=== PATIENT | male | born 1990 | race American Indian/Alaskan Native ===

== ENCOUNTER 2016-05-16 23:47 | Emergency (ER) | payer SELFPAY ==
[2016-05-17 01:10] LABS: Basophils % (Auto) 0.4 % (0.0-1.8); Eosinophils % (Auto) 0.3 % (0.0-4.3); Hematocrit 26.8 % (35.5-45.6); Hemoglobin 8.7 gm/dl (11.8-15.2); Mean Corpuscular HGB Conc 33 % (32-34); Mean Corpuscular Hemoglobin 28 pg (28-32); Mean Corpuscular Volume 85 fl (84-94); Platelet Count 267 K/mm3 (140-440); Red Blood Count 3.14 M/mm3 (3.65-5.03); Red Cell Distribution Width 14.9 % (13.2-15.2); White Blood Count 3.7 K/mm3 (4.5-11.0)
[2016-05-17 01:25] LABS: INR 1.18 (0.87-1.13)
[2016-05-17 01:26] LABS: Partial Thromboplastin Time 35.3 Sec. (24.2-36.6)
[2016-05-17 01:40] LABS: BUN/Creatinine Ratio 16.25; Blood Urea Nitrogen 13 mg/dL (9-20); Calcium 8.5 mg/dL (8.4-10.2); Carbon Dioxide 25 mmol/L (22-30); Chloride 95.1 mmol/L (98-107); Glucose 109 mg/dL (75-100); Potassium 4.1 mmol/L (3.6-5.0); Sodium 131 mmol/L (137-145)
[2016-05-17 01:41] LABS: Anion Gap 15 mmol/L
[2016-05-17 02:09] LABS: Bilirubin,Urine NEG (Negative); Blood,Urine SM (Negative); Ketones,Urine TR mg/dL (Negative); Leukocyte Esterase,Urine NEG (Negative); Mucus,Urine 3+ /HPF; Nitrite,Urine NEG (Negative)
--- NOTE | 2016-05-17 20:45 | Emergency Department Report ---
HPI - General Chief Complaint: Skin Rash Time Seen by Provider: 05/17/16 20:15 - HPI HPI: This is a 25-year-old Afro[place] male who presents to the emergency department with complaint of a rash to his entire body including portions of the palms and soles that been going on for the past week. They're occasionally itchy. When he does scratch and sometimes it'll bleed. He also complains of some of these lesions to the penis and portions where the skin has started to come off and he has begun to bleed. He has no trouble with urination however. Patient has a history of HIV and has not been on any antivirals since January 2015 which is also the last time he had a viral load or CD4 count. He does not have a primary care doctor. No recent travel or sick contacts at home. He has not taken anything for symptoms prior to presentation. ED Past Medical Hx - Past Medical History Previous Medical History?: Yes Hx HIV: Yes - Surgical History Past Surgical History?: No - Social History Smoking Status: Never Smoker Substance Use Type: None - Medications Home Medications: Home Medications Medication Instructions Recorded Confirmed Last Taken Type No Known Home Medications [No 05/17/16 05/17/16 Unknown History Reported Home Medications] ED Review of Systems ROS: Stated complaint: RASH/PENILE BLEEDING Other details as noted in HPI Comment: All other systems reviewed and negative Constitutional: denies: chills, fever Eyes: denies: eye pain, eye discharge, vision change ENT: denies: ear pain, throat pain Respiratory: denies: cough, shortness of breath, wheezing Cardiovascular: denies: chest pain, palpitations Gastrointestinal: denies: abdominal pain, nausea, diarrhea Genitourinary: denies: urgency, dysuria Musculoskeletal: denies: back pain, joint swelling, arthralgia Skin: rash, lesions Neurological: denies: headache, weakness, paresthesias Physical Exam - Physical Exam Vital Signs: Vital Signs 05/17/16 05/17/16 00:40 18:47 Temperature 99.6 F Pulse Rate 115 H 96 H Respiratory 20 16 Rate Blood Pressure 131/73 Blood Pressure 113/69 [Left] O2 Sat by Pulse 100 100 Oximetry Physical Exam: GENERAL: The patient is well-developed well-nourished. Patient does not appear in any acute distress. HEENT: Normocephalic. Atraumatic. Extraocular motions are intact. Patient has moist mucous membranes. Pupils equal reactive to light bilaterally. NECK: Supple. Trachea is midline. CHEST/LUNGS: Clear to auscultation. There is no respiratory distress noted. HEART/CARDIOVASCULAR: Regular. There is no tachycardia. There is no gallop rub or murmur. ABDOMEN: Abdomen is soft, nontender. Patient has normal bowel sounds. There is no abdominal distention. SKIN: Patient has diffuse inseminated papular lesions to his entire body including the right palm. Most of the papules are intact. There are some that have been excoriated down. No current bleeding, weeping or drainage. NEURO: The patient is awake, alert, and oriented. The patient is cooperative. The patient has no focal neurologic deficits. The patient has normal speech. MUSCULOSKELETAL: There is no tenderness or deformity. There is no limitation range of motion. There is no evidence of acute injury. ED Course Vital Signs 05/17/16 05/17/16 00:40 18:47 Temperature 99.6 F Pulse Rate 115 H 96 H Respiratory 20 16 Rate Blood Pressure 131/73 Blood Pressure 113/69 [Left] O2 Sat by Pulse 100 100 Oximetry - Consultations Consultation #1: Spoke with the infectious disease physician, Dr. richardson, who agrees with the plan for giving penicillin G 2.4 million units and the patient appears safe for discharge to follow-up with the health department. 05/17/16 21:52 ED Medical Decision Making - Lab Data Result diagrams: 05/17/16 00:53 05/17/16 00:53 - Medical Decision Making 25-year-old male with history of recently untreated HIV presents with a one- week history of a diffuse rash. Appears consistent with disseminated secondary syphilis. Patient's vitals up in stable. He had some mild tachycardia upon presentation but that has since resolved without any treatment. Patient has no current fever. Spoke with infectious disease who did not feel the patient requires admission at this time but does agree with giving the penicillin G and suggests follow-up with the health department. Patient was given the antibiotics and discussed his diagnosis, treatment, and plan for outpatient. He understands and agrees the plan. - Differential Diagnosis HIV/AIDS, syphilis, dermatitis, herpes zoster Critical Care Time: No Critical care attestation.: If time is entered above; I have spent that time in minutes in the direct care of this critically ill patient, excluding procedure time. ED Disposition Clinical Impression: HIV (human immunodeficiency virus infection), Syphilis, secondary Disposition: DISCHARGED TO HOME OR SELFCARE Is pt being admited?: No Does the pt Need Aspirin: No Condition: Stable Instructions: Syphilis (ED) Additional Instructions: Please follow-up with the health department in the next few days without fail. Please avoid any sexual contact until follow-up with the health department. Return to the emergency department with any worsening of your symptoms or any acute distress. Referrals: PRIMARY CARE, [Primary Care Provider] - 3-5 Days [facility] [Outside] - [facility] Time of Disposition: 22:14
[2016-05-17] MEDS ORDERED: BICILLIN L-A IM ONE (21:38)
[2016-05-17 23:02] VITALS: BP 109/66
== END 2016-05-17 22:28 | disposition home or self-care (01) ==
LOC: ED 23:47
DX: A51.49 Other secondary syphilitic conditions (principal); Z21 Asymptomatic human immunodeficiency virus [HIV] infection status
CPT/HCPCS: 36415; 80048; 81001; 85025; 85610; 85730; 87040; 96372; 99283; J0561

== ENCOUNTER 2016-08-26 16:47 | Emergency (ER) | payer OTHER ==
[2016-08-26 16:57] VITALS: BP 121/77
--- NOTE | 2016-08-26 18:22 | Emergency Department Report ---
Entered by NAVI MORENO, acting as scribe for LALITHA OREILLY PA. - General Chief complaint: Skin Rash Stated complaint: POSS STD/RED PATCHES Source: patient Mode of arrival: Ambulatory Limitations: No Limitations - History of Present Illness Initial comments: 25 year old male with a PMHx of syphilis and HIV presents to the ED c/o syphilitic rashes on upper back and bilateral shoulders that began 3 days ago. Associated symptoms include pain and erythema to affected areas, but he denies itching, cough, nausea, vomiting, fever, chills, numbness and tingling. Rates pain an 8/10 in severity. Notes that he no longer has an infectious disease doctor and is currently not compliant with HIV antivirals, because he was dropped from his insurance in 2013. NKDA. MADDEN complaint: rash Onset/Timin -: days(s) Tetanus Up to Date: unsure Location: back (upper), LUE (left shoulder), RUE (right shoulder) Severity: moderate Severity scale (0 -10): 8 Quality: burning, aching Consistency: constant Improves with: none Worsens with: palpation, movement Associated symptoms: denies other symptoms, other (pain to affected areas) Treatments Prior to Arrival: none - Related Data Previous Rx's Medication Instructions Recorded Last Taken Type Cephalexin [Keflex] 500 mg PO QID #28 capsule 08/26/16 Unknown Rx Triamcinolone 0.1% [Kenalog 0.1% 1 applic TP TID #15 tube 08/26/16 Unknown Rx CREAM] Allergies Allergy/AdvReac Type Severity Reaction Status Date / Time No Known Allergies Allergy Unverified 05/17/16 00:40 Abscess Boil HPI - HPI Chief Complaint: Skin Rash Stated Complaint: POSS STD/RED PATCHES Duration: 3 Days Location: Upper Extremity (bilateral shoulders) Severity: Moderate History: Yes Pain, No Fever, No Purulent Drainage, No Numbness, No Foreign Body , No Previous History, No Insect Bite Home Medications: Previous Rx's Medication Instructions Recorded Last Taken Type Cephalexin [Keflex] 500 mg PO QID #28 capsule 08/26/16 Unknown Rx Triamcinolone 0.1% [Kenalog 0.1% 1 applic TP TID #15 tube 08/26/16 Unknown Rx CREAM] Allergies/Adverse Reactions: Allergies Allergy/AdvReac Type Severity Reaction Status Date / Time No Known Allergies Allergy Unverified 05/17/16 00:40 ED Review of Systems Comment: All other systems reviewed and negative Constitutional: denies: chills, fever, other (itching and tingling) Respiratory: denies: cough, orthopnea, shortness of breath, SOB with exertion, SOB at rest, stridor Cardiovascular: denies: dyspnea on exertion, orthopnea Gastrointestinal: denies: nausea, vomiting Musculoskeletal: denies: joint swelling Skin: rash (syphilitic rashes on bilateral shoulders and upper back), other ( erythema to affected areas) Neurological: denies: headache, numbness ED Past Medical Hx - Past Medical History Hx HIV: Yes Additional medical history: syphilis - Social History Smoking Status: Current Every Day Smoker Substance Use Type: Alcohol, Marijuana - Medications Home Medications: Home Medications Medication Instructions Recorded Confirmed Last Taken Type Cephalexin [Keflex] 500 mg PO QID #28 capsule 08/26/16 Unknown Rx Triamcinolone 0.1% [Kenalog 0.1% 1 applic TP TID #15 tube 08/26/16 Unknown Rx CREAM] ED Physical Exam - General Limitations: No Limitations General appearance: alert, in no apparent distress - Head Head exam: Present: atraumatic, normocephalic - Eye Eye exam: Present: normal appearance, EOMI Pupils: Present: normal accommodation - ENT ENT exam: Present: normal exam, mucous membranes moist - Neck Neck exam: Present: normal inspection, full ROM - Respiratory Respiratory exam: Present: normal lung sounds bilaterally. Absent: respiratory distress - Cardiovascular Cardiovascular Exam: Present: regular rate, normal rhythm - Extremities Exam Extremities exam: Present: normal inspection, full ROM, tenderness (tenderness around affected areas on bilateral shoulders and upper back), other (syphilitic rashes on bilateral shoulders) - Back Exam Back exam: Present: normal inspection, full ROM, tenderness (tenderness around affected areas on upper back), rash noted (syphilitic rashes on upper back) - Neurological Exam Neurological exam: Present: alert, oriented X3 - Psychiatric Psychiatric exam: Present: normal affect, normal mood - Skin Skin exam: Present: warm, dry, intact, rash (syphilitic rashes on bilateral shoulders and upper back), erythema (syphilitic rashes on affected areas). Absent: other (edema on affected areas) ED Course Vital Signs 08/26/16 16:54 Temperature 98.2 F Pulse Rate 97 H Respiratory 18 Rate Blood Pressure 121/77 O2 Sat by Pulse 100 Oximetry ED Medical Decision Making - Medical Decision Making Patient was evaluated in fast track area of ED by this provider. Patient presented with syphilitic rashes on bilateral shoulders and upper back for 3 days. Patient is in no acute distress at this time. He will be discharged home with prescription for antibiotics and a cream to apply to affected areas. Patient will be referred to a HIV clinic to receive care and antivirals. He is encouraged to return to the emergency room for any worsening symptoms. ED Disposition Clinical Impression: Rash and nonspecific skin eruption Disposition: DISCHARGED TO HOME OR SELFCARE Is pt being admited?: No Does the pt Need Aspirin: No Condition: Stable Instructions: Acute Rash (ED) Additional Instructions: Please take antibiotics as prescribed. Please use the cream to your rashes. Very importantly to follow up with infection disease. Prescriptions: Cephalexin [Keflex] 500 mg PO QID #28 capsule Triamcinolone 0.1% [Kenalog 0.1% CREAM] 1 applic TP TID #15 tube Referrals: PRIMARY CARE, [Primary Care Provider] - 3-5 Days [facility] [Outside] - 3-5 Days Forms: Work/School Release Form(ED) This documentation as recorded by the JOSH rod JASMINE,accurately reflects the service I personally performed and the decisions made by me, LALITHA OREILLY PA.
== END 2016-08-26 18:28 | disposition home or self-care (01) ==
LOC: ED 16:47
DX: R21 Rash and other nonspecific skin eruption (principal); F17.200 Nicotine dependence, unspecified, uncomplicated; F12.10 Cannabis abuse, uncomplicated; Z21 Asymptomatic human immunodeficiency virus [HIV] infection status
CPT/HCPCS: 99282

== ENCOUNTER 2016-11-19 19:24 | Emergency (ER) | payer SELFPAY ==
[2016-11-19 22:50] LABS: Bilirubin,Urine NEG (Negative); Blood,Urine NEG (Negative); Ketones,Urine TR mg/dL (Negative); Leukocyte Esterase,Urine NEG (Negative); Nitrite,Urine NEG (Negative)
--- NOTE | 2016-11-19 23:04 | Emergency Department Report ---
HPI - General Chief Complaint: Skin Rash Time Seen by Provider: 11/19/16 22:43 - HPI HPI: This is a 26-year-old male with a prior history of systems otherwise presents to ED stating he is having some painless lesions spread out all over his body. Patient states this was a similar symptoms in his abdomen sometime in August when he came here for treatment. Next sign patient states he never followed up after last syphilis treatment here in the ED. Patient states measures are red with no itching or pain Patient denies fever/chills/nausea/vomiting/abdominal pain/any penile pain, discharge, pain with urination. ED Past Medical Hx - Past Medical History Hx HIV: Yes (2008) Additional medical history: syphilis - Surgical History Past Surgical History?: No - Social History Smoking Status: Current Every Day Smoker Substance Use Type: Alcohol - Medications Home Medications: Home Medications Medication Instructions Recorded Confirmed Last Taken Type Cephalexin [Keflex] 500 mg PO QID #28 capsule 08/26/16 Unknown Rx Triamcinolone 0.1% [Kenalog 0.1% 1 applic TP TID #15 tube 11/19/16 Unknown Rx CREAM] ED Review of Systems ROS: Stated complaint: TREATMENT FOR STD Other details as noted in HPI Constitutional: denies: chills, fever Eyes: denies: eye pain, eye discharge, vision change ENT: denies: ear pain, throat pain Respiratory: denies: cough, shortness of breath, wheezing Cardiovascular: denies: chest pain, palpitations Endocrine: no symptoms reported Gastrointestinal: denies: abdominal pain, nausea, vomiting, diarrhea Genitourinary: denies: urgency, dysuria Musculoskeletal: denies: back pain, joint swelling, arthralgia Skin: denies: rash, lesions Neurological: denies: headache, weakness, paresthesias Psychiatric: denies: anxiety, depression Hematological/Lymphatic: denies: easy bleeding, easy bruising Physical Exam - Physical Exam Vital Signs: Vital Signs 11/19/16 20:32 Temperature 98 F Pulse Rate 94 H Respiratory 16 Rate Blood Pressure 113/71 O2 Sat by Pulse 100 Oximetry Physical Exam: GENERAL: Alert and oriented x3, no apparent distress, Normal Gait, atraumatic. HEAD: Head is normocephalic and a-traumatic. MOUTH:Mouth is well hydrated and without lesions. Tonsils nonerythematous or swollen, Uvula midline, Tongue not elevated. Mucous membranes are moist. Posterior pharynx clear, no exudate or lesions. Patent airways. LUNGS: Symetrical with respiration, No wheezing, no rales or crackles, CTAB. HEART: S1, S2 present, regular rate and rhythm without murmur, no rubs, no gallops. Non tender to palpation ABDOMEN: No organomegaly was noted,Positive bowel sounds, soft, and non- distended. . Nontender to palpation on all Quadrants, NO CVA tenderness. UROGENITAL: No scrotal mass, Scrotum non tender to palpation bilaterally, no hernia, no scars or penile discharge. EXTREMITIES/MUSCULOSKELETAL: No cyanosis, clubbing, rash, lesions or edema. Full ROM bilaterally. UE/LE Pulses 2+ bilaterally. LE and UE 5+ strength bilaterally, NEUROLOGIC: The patient is cooperative with no focal neurologic deficits. Cranial nerves II through XII are grossly intact. Normal speech. No known nucal rigidity. SKIN: Warm and dry, generalize, pinpoint, erythematous, lesions spread all over arms , trunk and legs. Nontender to palpation, no active bleeding ED Course Vital Signs 11/19/16 20:32 Temperature 98 F Pulse Rate 94 H Respiratory 16 Rate Blood Pressure 113/71 O2 Sat by Pulse 100 Oximetry - Consultations Consultation #1: Infectious disease paged to discuss case with and get recommendations patient could be followed up outpatient 11/20/16 11:59 ED Medical Decision Making - Medical Decision Making 26-year-old male presents with secondary syphilis dermatitis ED course: Urinalysis and Chlamydia culture obtained. Discussed the patient will treated in ED with 2.4 mg of penicillin. Discussed the patient the importance of follow-up primary care physician as referred for other STD testing Discussed need for continued follow-up for titers signs vital signs are normal patient has no acute distress. Discussed the patient to abstain from intercourse until further STD testing done. Discussed the patient have any worsening symptoms to return to ED. According to [employer]: CSF testing to detect neurosyphilis is recommended in patients with tertiary syphilis or with neurological signs or symptoms consistent with neurosyphilis and in patients without symptoms whose serologic titers do not decline appropriately after being treated with recommended therapy. Patient has no neurological symptoms. Patient has secondary syphilis and has no other symptoms. Discussed the patient importance of following up with infectious disease for management. 2 infectious diseases specialist given to patient patient states he understands that he will call for follow-up. Critical care attestation.: If time is entered above; I have spent that time in minutes in the direct care of this critically ill patient, excluding procedure time. ED Disposition Clinical Impression: Secondary syphilis in male, Secondary syphilis of skin Disposition: TO HOME OR SELFCARE Is pt being admited?: No Does the pt Need Aspirin: No Condition: Stable Instructions: Sexually Transmitted Diseases (ED), Syphilis (ED), Safe Sex (ED) Additional Instructions: Take Benadryl If rash is itchy Follow-up with referrals as given. As given on your discharge instructions. Call office as soon as possible so Monday to be seen. Prescriptions: Triamcinolone 0.1% [Kenalog 0.1% CREAM] 1 applic TP TID #15 tube Referrals: [facility] [Outside] - 3-5 Days [facility] [Outside] - 3-5 Days [facility] [Outside] - 3-5 Days ADELINA LOPEZ MD [Staff Physician] - 2-3 Days ([facility] office on Monday for Appt.) [facility] [Outside] - 3-5 Days (For further STD screening.) Forms: Work/School Release Form(ED) Time of Disposition: 23:55
[2016-11-19] MEDS ORDERED: BICILLIN L-A IM ONE (23:17)
[2016-11-20 02:07] VITALS: BP 147/96
== END 2016-11-20 02:23 | disposition home or self-care (01) ==
LOC: ED 19:24
DX: A51.39 Other secondary syphilis of skin (principal); F17.200 Nicotine dependence, unspecified, uncomplicated
CPT/HCPCS: 81001; 87591; 96372; 99283; J0561